=== PATIENT | female | born 1985 | race Caucasian/White ===

== ENCOUNTER 2017-01-06 19:30 | Emergency (ER) | payer OTHER | END 2017-01-06 19:55 | disposition home or self-care (01) | LOC: EC 19:30 | DX: S27.818A Other injury of esophagus (thoracic part), initial encounter (principal); L81.8 Other specified disorders of pigmentation; F17.200 Nicotine dependence, unspecified, uncomplicated; Z88.0 Allergy status to penicillin; Z88.2 Allergy status to sulfonamides; Z91.040 Latex allergy status; X58.XXXA Exposure to other specified factors, initial encounter | CPT/HCPCS: 86803; 87340; 99282 ==

== ENCOUNTER 2018-09-24 09:42 | Emergency (ER) | payer OTHER ==
[2018-09-24 09:47] VITALS: TEMP 98.5
[2018-09-24] MEDS ORDERED: LORazepam 1 MG TAB PO STA (10:28)
[2018-09-24 11:32] VITALS: BP 151/87; PULSE 100; RESP 18
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
== END 2018-09-24 11:47 | disposition home or self-care (01) ==
LOC: EC 09:42
DX: F41.9 Anxiety disorder, unspecified (principal); F17.200 Nicotine dependence, unspecified, uncomplicated; Z88.0 Allergy status to penicillin; Z88.2 Allergy status to sulfonamides; Z91.040 Latex allergy status
CPT/HCPCS: 99283

== ENCOUNTER 2018-09-25 21:16 | Emergency (ER) | payer OTHER ==
[2018-09-25] MEDS ORDERED: ZIPRASIDONE 20 MG CAP PO STA (22:14)
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
[2018-09-25 22:55] VITALS: BP 128/76; PULSE 99; RESP 18; TEMP 99.2
== END 2018-09-25 22:59 | disposition home or self-care (01) ==
LOC: EC 21:16
DX: F41.9 Anxiety disorder, unspecified (principal); F17.200 Nicotine dependence, unspecified, uncomplicated; Z88.0 Allergy status to penicillin; Z88.2 Allergy status to sulfonamides; Z91.040 Latex allergy status; Z79.899 Other long term (current) drug therapy; Z91.410 Personal history of adult physical and sexual abuse
CPT/HCPCS: 99283

== ENCOUNTER 2020-05-02 07:28 | Inpatient (IN) | payer OTHER ==
[2020-05-02] MEDS ORDERED: CLINDAMYCIN 900 MG in DEXTROSE 5% IN WATER 50 ML IVPB STA ×2 (07:32)
[2020-05-02] MEDS ORDERED: LIDOCAINE 0.5% (PF) 5 MG/ML (50 ML SDV) SQ PRN (07:32)
[2020-05-02] MEDS ORDERED: CARBOPROST TROMETHAMINE 250 MCG/ML 1 ML AMP IM PRN (07:32)
[2020-05-02] MEDS ORDERED: METHYLERGONOVINE 0.2 MG/ML 1 ML AMP IM PRN (07:32)
[2020-05-02] MEDS ORDERED: OXYTOCIN 10 UNIT/ML 1 ML VIAL IM PRN (07:32)
[2020-05-02] MEDS ORDERED: TERBUTALINE 1 MG/ML VIAL SQ PRN (07:32)
[2020-05-02] MEDS ORDERED: CITRIC ACID-SODIUM CITRATE 15 ML CUP PO ONE (07:35)
[2020-05-02] MEDS: LACTATED RINGERS 1,000 ML IV SCH ×4 (07:38→16:49)
[2020-05-02] MEDS ORDERED: KETAMINE 10 MG/ML 20 ML VIAL ONE (07:45)
[2020-05-02] MEDS ORDERED: OXYTOCIN 10 UNIT/ML 1 ML VIAL ONE (07:45)
[2020-05-02] MEDS ORDERED: fentaNYL (PF) 50 MCG/ML 2 ML AMP ONE (07:45)
[2020-05-02] MEDS ORDERED: KETOROLAC 15 MG/ML 1 ML VIAL ONE (07:45)
[2020-05-02] MEDS ORDERED: HYDROmorphone (PF) 1 MG/ML ONE (07:45)
[2020-05-02] MEDS ORDERED: PROPOFOL 10 MG/ML 20 ML VIAL IV ONE (07:45)
[2020-05-02] MEDS ORDERED: LACTATED RINGERS 1,000 ML IV SCH (07:45)
[2020-05-02] MEDS ORDERED: SUCCINYLCHOLINE CHLORIDE VIAL 200 MG/10 ML VIAL IV ONE (07:45)
[2020-05-02] MEDS ORDERED: ONDANSETRON 4 MG/2 ML VIAL IVP PRN (09:38)
[2020-05-02] MEDS ORDERED: HYDROcodone/APAP 7.5-325MG 1 EACH TAB PO PRN (09:38)
[2020-05-02] MEDS ORDERED: METOCLOPRAMIDE 5 MG/ML 2 ML VIAL IVP PRN (09:38)
[2020-05-02] MEDS ORDERED: ZOLPIDEM 5 MG TAB PO PRN (09:38)
[2020-05-02] MEDS ORDERED: diphenhydrAMINE 50 MG CAP PO PRN (09:38)
[2020-05-02] MEDS ORDERED: diphenhydrAMINE 25 MG CAP PO PRN (09:38)
[2020-05-02] MEDS ORDERED: NALOXONE 0.4 MG/ML 1 ML VIAL IV PRN (09:38)
[2020-05-02] MEDS ORDERED: HYDROcodone/APAP 5-325MG 1 EACH TAB PO PRN (09:38)
[2020-05-02] MEDS ORDERED: diphenhydrAMINE 50 MG/ML 1 ML VIAL IVP PRN ×2 (09:38)
[2020-05-02 09:43] LABS: HCT 38.4 % (34.0-46.0); HGB 12.4 gm/dL (11.4-16.0); Hypochromasia Moderate; MCH 28.8 pg (25.0-35.0); MCHC 32.3 g/dL (31.0-37.0); MCV 89.1 fL (80.0-100.0); Mean Platelet Volume 9.2; Platelet Count 421 k/uL (150-450); Poikilocytosis Slight; RBC 4.31 m/uL (3.80-5.40); RDW 14.4 % (11.5-15.5)
[2020-05-02 09:47] LABS: WBC 31.9 k/uL (3.8-10.6)
[2020-05-02] MEDS ORDERED: HYDROmorphone PCA 10 MG/50 ML BAG IV PRN (10:00)
--- NOTE | 2020-05-02 10:02 | P.HPOB ---
History of Present Illness H&P Date: 05/02/20 Chief Complaint: 40+ weeks, no care, active labor, transverse prese ntation The patient is a 34-year-old 3 para 2001 who presents to labor and delivery at 40-3/7 weeks by an early ultrasound with history of no further care. She presents in active labor and is found fully dilated. Ultrasound performed by the radiology department demonstrates the fetus to be in transverse presentation with the head in the left lower quadrant, back down. Her cervix is found to be completely dilated. The patient denies any complications with the but is on methadone maintenance for narcotics addiction. She reports that she attempted to seek care when she found that she was but did not know she was until the late second e kel third trimester and was unable to find anyone to see her. She is known to be Rh- but otherwise has no labs on record. She denies any problems with the to this point. Obstetrical history: 3 para 2001 with 2 term vaginal deliveries in the past without complications. Everything known about the is otherwise listed in history of present illness. She is reportedly Rh-. No other labs are available. Gynecologic history: Unremarkable with no apparent history of STDs but no time for questioning. Review of Systems Review of systems is confined to history of present illness. Past Medical History Past Medical History: No Reported History History of Any Multi-Drug Resistant Organisms: None Reported Past Surgical History: Cholecystectomy, Orthopedic Surgery Additional Past Surgical History / Comment(s): shoulder Past Psychological History: Anxiety Past Alcohol Use History: Occasional Past Drug Use History: None Reported Medications and Allergies Home Medications Medication Instructions Recorded Confirmed Type Acetaminophen Tab [Tylenol Tab] 1,000 mg PO Q6H PRN 09/25/18 05/02/20 History Multivitamins, Thera [Multivitamin 1 tab PO DAILY 09/25/18 05/02/20 History (formulary)] Methadone [Dolophine] 120 mg PO DAILY 05/02/20 05/02/20 History Allergies Allergy/AdvReac Type Severity Reaction Status Date / Time latex Allergy Anaphylaxis Verified 05/02/20 07:30 Penicillins Allergy Unknown Verified 05/02/20 07:30 Childhood Sulfa (Sulfonamide Allergy Rash/Hives Verified 05/02/20 07:30 Antibiotics) Exam Intake and Output 05/01/20 05/02/2005/02/20 22:59 06:59 14:59 Other: Weight 113.398 kg In general, this is a morbidly obese white female in significant discomfort as she is completely dilated and in labor. Her heart has a regular rhythm but is otherwise tachycardic without any apparent murmurs. Her lungs are clear to auscultation bilaterally in all briscoe. Her abdomen is gravid, obese, nondistended, soft, with moderate tenderness secondary to labor. Her extremities without any cyanosis, clubbing, or edema and are nontender to palpation bilaterally. Digital cervical examinations demonstrates complete dilation with no evidence of presenting part. Bedside ultrasound by radiology and by myself confirmed had in the left lower quadrant, transverse presentation. Results Result Diagrams: 05/02/20 07:25 05/02/20 09:03 Abnormal Lab Results - Last 24 Hours (Table) 05/02/20 05/02/20 Range/Units 07:25 09:03 WBC 31.9 H (3.8-10.6) k/uL Glucose 130 H (74-99) mg/dL Assessment and Plan (1) Active labor at term Current Visit: Yes Status: Acute Code(s): [id number] - SNOMED Code(s): 79089200 (2) Obesity Current Visit: Yes Status: Acute Code(s): E66.9 - OBESITY, UNSPECIFIED SNOMED Code(s): 897430943 (3) malposition, delivered, current hospitalization Current Visit: Yes Status: Acute Code(s): O32.9XX0 - MATERNAL CARE FOR MALPRESENTATION OF FETUS, UNSP, UNSP SNOMED Code(s): 775411352 Plan: The patient was counseled regarding the need for delivery. She agreed to proceed. She was taken to the operating room emergently for primary low- transverse section for transverse presentation.
--- NOTE | 2020-05-02 10:17 | P.OP ---
Date of Procedure: 05/02/20 Preoperative Diagnosis: #1. 40+ weeks, transverse presentation #2. No care #3. Rh- #4. Active labor, fully dilated Postoperative Diagnosis: Same Procedure(s) Performed: #1. Primary low-transverse section Anesthesia: ESMER Surgeon: Yan Tesfaye Estimated Blood Loss (ml): 700 IV fluids (ml): 800 Urine output (ml): 100 Pathology: other (Placenta) Condition: stable Disposition: floor Operative Findings: Preoperatively, the patient had been noted to have the fetus in transverse presentation both on formal ultrasound and by bedside ultrasound performed by myself prior to going to the operating room. Intraoperatively, the fetus was easily everted to vertex and then delivered in standard fashion having initially been in an oblique presentation with the head in the left lower quadrant, back down. She was delivered of a viable 7 lbs. 15 oz. baby girl with Apgars of 8 at 1 minute and 9 at 5 minutes. The placenta was delivered manually and intact with a grossly normal three-vessel cord. The uterus, tubes, and ovaries were entirely normal to inspection. Description of Procedure: The patient was prepped and draped in usual fashion after which time general endotracheal anesthesia was administered by the anesthesiologist. A Pfannenstiel incision was made and extended into the abdominal cavity without difficulty. The bladder peritoneum was far distal to the intended site of incision was left intact. A 2 cm incision was made in the transverse plane of the lower uterine segment to enter the uterus at which time clear fluid was noted. Incision was extended in both directions bluntly. The head was encountered in the left lower quadrant after exploration with the back down and was inverted fairly easily to had first, vertex presentation. The vertex was then delivered up and through the incision where the nose and mouth were thoroughly suctioned. The remainder of the was delivered onto the field where the cord was doubly clamped, cut, and the infant passed resuscitative measures with weight and Apgars as noted above. cord blood was collected. A segment of cord was doubly clamped, cut, and set aside should cord gases become necessary. The placenta was delivered manually and intact as noted above. The uterus was exteriorized and the interior cavity of the uterus swept of any remaining placental or membranous fragments. The margins of the incision were grasped with Hudson clamps and the incision closed in 2 layers, the first was a running locking stitch of 0 chromic catgut followed by a running imbricating stitch of 0 chromic catgut, each from margin to margin. Any small points of bleeding were made hemostatic with the Bovie. The posterior cul-de-sac was then suctioned with a guard as well as a laparotomy sponge and the uterine and ovarian findings were normal as noted above. The uterus was replaced within the abdominal cavity and the gutters swept of any remaining blood, fluid, or clot. The incision was reexamined and any other small points of bleeding were made hemostatic with the Bovie. Once hemostasis was established, the parietal peritoneum was loosely reapproximated in the layer of muscles examined and found to be hemostatic. The fascia was closed with 2 running stitches of 0 Vicryl proceeding from the lateral margins to the midpoint. The subcutaneous tissues were irrigated, made hemostatic with the Bovie, and reapproximated with a running stitch of 30 plain catgut. The skin was reapproximated with a running subcuticular stitch of 4-0 Vicryl from margin to margin followed by half-inch Steri-Strips placed with Mastisol. Estimated blood loss for the case was approximately 700 mL. There were no complications. All sponge, instrument, and needle counts were correct. Both mother and infant are resting comfortably in recovery. The patient tolerated the procedure well and proceeded to the recovery room in stable condition.
--- NOTE | 2020-05-02 10:20 | US ---
EXAMINATION TYPE: US OB limited DATE OF EXAM: 05/02/2020 COMPARISON: NONE CLINICAL HISTORY: no care, position. emergent ultrasound on patient with no care in active labor EXAM PERFORMED: OB limited for position No growth performed on today?s study per ordering physician SURVEY LIE: Transverse with head maternal L HEART RATE: nurses were monitoring heart beat of fetus and due to emergent nature, US did not attemp t to obtain IMPRESSION: Limited single grayscale image demonstrates lie transverse with head to maternal l eft.
[2020-05-02 10:32] LABS: Band Neutrophils % 1 %; Eosinophils # (M) 0.32 k/uL (0-0.7); Lymphocytes # (M) 2.23 k/uL (1.0-4.8); Metamyelocytes # (M) 0.32 k/uL (0); Metamyelocytes % 1 %; Monocytes # (M) 1.28 k/uL (0-1.0); Myelocytes # (M) 0.32 k/uL (0); Myelocytes % 1 %; Neutrophils % (M) 87 %; Nucleated Red Blood Cells 0 /100 WBC (0-0); Total Cells Counted 200
[2020-05-02 10:35] LABS: Anisocytosis (M) Present; Polychromasia Present
[2020-05-02 11:08] LABS: Amorphous Sediment,Urine Rare /hpf; Appearance,Urine Cloudy (Clear); Bacteria,Urine Rare /hpf; Bilirubin,Urine Negative (Negative); Blood,Urine Large (Negative); Color,Urine Light Red; Glucose,Urine (UA) Negative (Negative); Ketones,Urine Negative (Negative); Leukocyte Esterase,Urine Trace (Negative); Mucus,Urine Few /hpf; Nitrite,Urine Negative (Negative); Protein,Urine 3+ (Negative); RBC,Urine >182 /hpf (0-5); Squamous Epithelial Cell,Urine 2 /hpf (0-4); Urobilinogen,Urine <2.0 mg/dL (<2.0); WBC,Urine 11 /hpf (0-5)
[2020-05-02] MEDS ORDERED: Rhogam IMMUNE GLOBULIN 1,500 UNIT/1 ML IM ONE (15:07)
[2020-05-02] MEDS: KETOROLAC 15 MG/ML 1 ML VIAL IVP PRN ×2 (15:20→21:30)
[2020-05-02] MEDS ORDERED: CLINDAMYCIN 900 MG in DEXTROSE 5% IN WATER 50 ML IVPB SCH ×2 (15:30)
[2020-05-02] MEDS ORDERED: PATIENTS OWN MED PO SCH (17:00)
[2020-05-02 18:03] LABS: Hepatitis B Surface Antigen Non-Reactive (Non-Reactive)
[2020-05-02] MEDS: SENNOSIDES-DOCUSATE SODIUM 1 EACH TAB PO SCH (21:09)
[2020-05-02] MEDS: METHADONE 40 MG, METHADONE 5 MG PO SCH ×2 (22:11)
[2020-05-03] MEDS: LACTATED RINGERS 1,000 ML IV SCH (01:02)
[2020-05-03] MEDS: METHADONE 10 MG TAB PO SCH (04:50)
[2020-05-03] MEDS: KETOROLAC 15 MG/ML 1 ML VIAL IVP PRN (06:02)
[2020-05-03 06:09] LABS: Basophils # (A) 0.1 k/uL (0-0.2); Basophils % (A) 0 %; Eosinophils # (A) 0.1 k/uL (0-0.7); Eosinophils % (A) 0 %; HCT 29.2 % (34.0-46.0); Hypochromasia Slight; Lymphocytes # (A) 2.6 k/uL (1.0-4.8); Lymphocytes % (A) 11 %; MCH 28.3 pg (25.0-35.0); MCHC 31.9 g/dL (31.0-37.0); MCV 88.9 fL (80.0-100.0); Mean Platelet Volume 7.7; Monocytes % (A) 4 %; Neutrophils # (A) 19.4 k/uL (1.3-7.7); Neutrophils % (A) 82 %; Platelet Count 349 k/uL (150-450); RBC 3.29 m/uL (3.80-5.40); RDW 14.9 % (11.5-15.5); WBC 23.6 k/uL (3.8-10.6)
[2020-05-03 06:14] LABS: HGB 9.3 gm/dL (11.4-16.0)
--- NOTE | 2020-05-03 07:25 | P.PNOBGPC ---
Subjective - Subjective Patient reports: Reports appetite normal, Reports voiding normally, Reports pain well controlled, Reports ambulating normally : doing well Objective - Vital Signs Latest vital signs: Vital Signs Temp Pulse Resp BP Pulse Ox 05/03/20 04:00 98.4 F 88 18 129/64 95 05/03/20 00:00 97.5 F L 94 16 133/75 96 05/02/20 20:00 97.7 F 95 18 120/59 95 05/02/20 16:00 98.4 F 93 16 111/69 93 L 05/02/20 11:00 98.2 F 100 16 135/64 05/02/20 10:45 100 16 137/62 93 L 05/02/20 10:15 98 16 129/60 97 05/02/20 09:45 100 16 143/66 94 L 05/02/20 09:30 97 16 142/62 94 L 05/02/20 09:15 93 16 145/70 95 05/02/20 09:00 99 16 143/68 94 L 05/02/20 08:45 117 H 16 135/76 93 L 05/02/20 07:30 97.1 F L 109 H 20 150/90 98 Intake and Output 05/02/20 05/03/20 05/03/20 22:59 06:59 14:59 Output Total 1130 700 Balance -1130 -700 Output: Urine 1130 700 Uretheral (Franz) 150 Other: Voiding Method Toilet Toilet # Voids 1 - Exam Extremities: Present: normal Abdomen: Present: normal appearance, soft. Absent: distention, tenderness Incision: Present: normal, dry, intact Uterus: Present: normal, firm (The uterine fundus is tonic and appropriately tender around the umbilicus.) - Labs Labs: Abnormal Lab Results - Last 24 Hours (Table) 05/02/20 05/02/20 05/02/20 Range/Units 07:25 09:03 10:26 WBC 31.9 H (3.8-10.6) k/uL RBC (3.80-5.40) m/uL Hgb (11.4-16.0) gm/dL Hct (34.0-46.0) % Neutrophils # (1.3-7.7) k/uL Neutrophils # (Manual) 28.00 H (1.3-7.7) k/uL Monocytes # (Manual) 1.28 H (0-1.0) k/uL Metamyelocytes # (Man) 0.32 H (0) k/uL Myelocytes # (Manual) 0.32 H (0) k/uL Glucose 130 H (74-99) mg/dL Urine Appearance Cloudy H (Clear) Urine Protein 3+ H (Negative) Urine Blood Large H (Negative) Ur Leukocyte Esterase Trace H (Negative) Urine RBC >182 H (0-5) /hpf Urine WBC 11 H (0-5) /hpf Amorphous Sediment Rare H (None) /hpf Urine Bacteria Rare H (None) /hpf Urine Mucus Few H (None) /hpf 05/03/20 Range/Units 05:51 WBC 23.6 H (3.8-10.6) k/uL RBC 3.29 L (3.80-5.40) m/uL Hgb 9.3 L D (11.4-16.0) gm/dL Hct 29.2 L (34.0-46.0) % Neutrophils # 19.4 H (1.3-7.7) k/uL Neutrophils # (Manual) (1.3-7.7) k/uL Monocytes # (Manual) (0-1.0) k/uL Metamyelocytes # (Man) (0) k/uL Myelocytes # (Manual) (0) k/uL Glucose (74-99) mg/dL Urine Appearance (Clear) Urine Protein (Negative) Urine Blood (Negative) Ur Leukocyte Esterase (Negative) Urine RBC (0-5) /hpf Urine WBC (0-5) /hpf Amorphous Sediment (None) /hpf Urine Bacteria (None) /hpf Urine Mucus (None) /hpf Assessment and Plan (1) Active labor at term Current Visit: Yes Status: Acute Code(s): [id number] - SNOMED Code(s): 41399238 (2) Obesity Current Visit: Yes Status: Acute Code(s): E66.9 - OBESITY, UNSPECIFIED SNOMED Code(s): 239031806 (3) malposition, delivered, current hospitalization Current Visit: Yes Status: Acute Code(s): O32.9XX0 - MATERNAL CARE FOR MALPRESENTATION OF FETUS, UNSP, UNSP SNOMED Code(s): 231254187 (4) Status post section Current Visit: Yes Status: Acute Code(s): Z98.891 - HISTORY OF UTERINE SCAR FROM PREVIOUS SURGERY SNOMED Code(s): 785604138 Plan: Continue routine postoperative care. Her IV will be saline locked and the [employer] discontinued in favor of oral pain medications. I strongly encouraged her to ambulate in the halls routinely. I would anticipate possible discharge home tomorrow pending no complications though the may require longer-term stay secondary to methadone. As result, the patient may choose to stay longer as well.
[2020-05-03] MEDS: SENNOSIDES-DOCUSATE SODIUM 1 EACH TAB PO SCH ×2 (09:24→19:44)
[2020-05-03] MEDS: ACETAMINOPHEN TAB 325 MG TAB PO PRN ×2 (11:04→19:44)
[2020-05-03] MEDS: IBUPROFEN 600 MG TAB PO PRN (16:55)
[2020-05-03] MEDS ORDERED: METHADONE 5 MG TAB PO SCH (17:00)
[2020-05-03] MEDS ORDERED: METHADONE 40 MG, METHADONE 5 MG PO SCH ×2 (17:00)
[2020-05-03] MEDS: METHADONE 40 MG, METHADONE 5 MG PO SCH ×2 (17:21)
[2020-05-04] MEDS: METHADONE 10 MG TAB PO SCH (04:54)
[2020-05-04] MEDS: ACETAMINOPHEN TAB 325 MG TAB PO PRN (05:00)
--- NOTE | 2020-05-04 08:38 | P.PNOBGPC ---
Subjective - Subjective Patient reports: Reports appetite normal, Reports voiding normally, Reports pain well controlled, Reports ambulating normally : doing well, in NICU ( requiring are ptotic for the withdrawal protocol, likely to be here for some time.) Objective - Vital Signs Latest vital signs: Vital Signs Temp Pulse Resp BP 05/04/20 00:00 97.3 F L 86 16 135/73 05/03/20 16:00 97.8 F 78 16 134/86 - Exam Extremities: Present: normal Abdomen: Present: normal appearance, soft. Absent: distention, tenderness Incision: Present: normal, dry, intact Uterus: Present: normal, firm (The uterine fundus is tonic and appropriately tender around the umbilicus.) Assessment and Plan (1) Active labor at term Current Visit: Yes Status: Acute Code(s): [id number] - SNOMED Code(s): 85050538 (2) Obesity Current Visit: Yes Status: Acute Code(s): E66.9 - OBESITY, UNSPECIFIED SNOMED Code(s): 080631292 (3) malposition, delivered, current hospitalization Current Visit: Yes Status: Acute Code(s): O32.9XX0 - MATERNAL CARE FOR MALPRESENTATION OF FETUS, UNSP, UNSP SNOMED Code(s): 353914099 (4) Status post section Current Visit: Yes Status: Acute Code(s): Z98.891 - HISTORY OF UTERINE SCAR FROM PREVIOUS SURGERY SNOMED Code(s): 439168290 Plan: Continue routine postoperative and care. The patient wishes to remain in the hospital for 1 more day and will likely be discharged home tomorrow.
[2020-05-04] MEDS: SENNOSIDES-DOCUSATE SODIUM 1 EACH TAB PO SCH (09:01)
[2020-05-04] MEDS: IBUPROFEN 600 MG TAB PO PRN ×2 (09:01)
[2020-05-04 10:03] VITALS: BP 120/75; PULSE 98; RESP 18; TEMP 98.5
[2020-05-04 16:39] LABS: HIV 2 AB Non-Reactive (Non-Reactive); HIV AB P24 Non-Reactive (Non-Reactive); HIV P24 AG Non-Reactive (Non-Reactive)
[2020-05-05 15:07] LABS: C. trachomatis,PCR Negative (Neg,Equiv); Chlamydia trachomatis Source Urine; N. gonorrhoeae,PCR Negative (Neg,Equiv); Neisseria Source Urine
== END 2020-05-04 13:20 | disposition home or self-care (01) | DRG 788 ==
LOC: 4FBP 07:28
PROVIDERS: ADMIT Obstetrics & Gynecology; ATTEND Obstetrics & Gynecology
PROC: 10D00Z1 Extraction of Products of Conception, Low, Open Approach (ICD-10-PCS; principal; 2020-05-02 07:45)
DX: O32.2XX0 Maternal care for transverse and oblique lie, not applicable or unspecified (principal); O99.214 Obesity complicating childbirth; E66.01 Morbid (severe) obesity due to excess calories; O99.62 Diseases of the digestive system complicating childbirth; K21.9 Gastro-esophageal reflux disease without esophagitis; O26.893 Other specified pregnancy related conditions, third trimester; Z86.59 Personal history of other mental and behavioral disorders; Z37.0 Single live birth; Z3A.40 40 weeks gestation of pregnancy
CPT/HCPCS: 76815; 81001; 82947; 85025; 85461; 86762; 86780; 86850; 86900; 86901; 87340; 87390; 87491; 87591; 88307

== ENCOUNTER 2020-05-05 08:44 | Emergency (ER) | payer OTHER ==
[2020-05-05 08:54] VITALS: TEMP 98.6
--- NOTE | 2020-05-05 09:37 | ED ---
General Adult HPI - General Chief complaint: Extremity Injury, Lower Stated complaint: post /poss blood clot Time Seen by Provider: 05/05/20 09:03 Source: patient, RN notes reviewed Mode of arrival: ambulatory Limitations: no limitations - History of Present Illness Initial comments: This a 34-year-old female presents emergency Department chief complaint leg swelling, right leg pain. Patient states that she is discharged yesterday status post . Patient states that she woke up severe right thigh pain states her legs are numbness. She states she had mild swelling but nothing to this extent. She denies any chest pain shortness breath. She denies any history of preeclampsia or gestational diabetes. Patient states that her FABRICATION MACHINE OPERATOR was Dr. Chance in the hospital. Patient reports no fever, chills, headache or dizziness. Patient does state that she takes methadone. - Related Data Home Medications Medication Instructions Recorded Confirmed Acetaminophen Tab [Tylenol Tab] 1,000 mg PO Q6H PRN 09/25/18 05/02/20 Multivitamins, Thera [Multivitamin 1 tab PO DAILY 09/25/18 05/02/20 (formulary)] Methadone [Dolophine] 120 mg PO DAILY 05/02/20 05/02/20 Previous Rx's Medication Instructions Recorded Ibuprofen [Motrin] 600 mg PO Q8HR PRN #20 tab 05/05/20 Nitrofurantoin Monohyd/M-Cryst 100 mg PO Q12HR #14 cap 05/05/20 [Macrobid] Allergies Allergy/AdvReac Type Severity Reaction Status Date / Time latex Allergy Anaphylaxis Verified 05/05/20 08:51 Penicillins Allergy Unknown Verified 05/05/20 08:51 Childhood Sulfa (Sulfonamide Allergy Rash/Hives Verified 05/05/20 08:51 Antibiotics) Review of Systems ROS Statement: Those systems with pertinent positive or pertinent negative responses have been documented in the HPI. ROS Other: All systems not noted in ROS Statement are negative. Past Medical History Past Medical History: No Reported History History of Any Multi-Drug Resistant Organisms: None Reported Past Surgical History: Cholecystectomy, Orthopedic Surgery Additional Past Surgical History / Comment(s): shoulder Past Anesthesia/Blood Transfusion Reactions: No Reported Reaction Past Psychological History: Anxiety Past Alcohol Use History: Occasional Past Drug Use History: None Reported - Past Family History Mother Family Medical History: Cancer Additional Family Medical History / Comment(s): breast General Exam Limitations: no limitations General appearance: alert, in no apparent distress Head exam: Present: atraumatic, normocephalic, normal inspection Eye exam: Present: normal appearance, PERRL, EOMI. Absent: scleral icterus, conjunctival injection, periorbital swelling ENT exam: Present: normal exam, normal oropharynx, mucous membranes moist Neck exam: Present: normal inspection, full ROM. Absent: tenderness, meningismus, lymphadenopathy Respiratory exam: Present: normal lung sounds bilaterally. Absent: respiratory distress, wheezes, rales, rhonchi, stridor Cardiovascular Exam: Present: regular rate, normal rhythm, normal heart sounds. Absent: systolic murmur, diastolic murmur, rubs, gallop, clicks GI/Abdominal exam: Present: soft, tenderness (Minimal), normal bowel sounds, other ( incision noted). Absent: distended, guarding, rebound, rigid Extremities exam: Present: pedal edema, other (Moderate right thigh tenderness, lower extremity pulses equal bilaterally) Back exam: Absent: CVA tenderness (R), CVA tenderness (L) Skin exam: Present: warm, dry, intact, normal color. Absent: rash Course Vital Signs 05/05/20 05/05/20 08:51 11:41 Temperature 98.6 F Pulse Rate 96 107 H Respiratory 18 16 Rate Blood Pressure 145/77 130/68 O2 Sat by Pulse 99 99 Oximetry Medical Decision Making - Medical Decision Making Peripheral female presented for leg pain was concern for possible DVT. Patient did have mild swelling and she is . Blood pressure is mildly elevated though on repeat not significantly elevated. Patient's LDH uric acid is minimally elevated. A CERT the patient that she needs a follow-up within the next 24-48 hrs. with her FABRICATION MACHINE OPERATOR she needs to monitor blood pressure at home and if there is any elevation she is return the emergency department for further evaluation and possible admission. - Lab Data Result diagrams: 05/05/20 09:52 05/05/20 09:52 Lab Results 05/05/20 05/05/20 05/05/20 Range/Units 09:52 09:52 09:52 WBC 19.3 H (3.8-10.6) k/uL RBC 3.11 L (3.80-5.40) m/uL Hgb 8.7 L (11.4-16.0) gm/dL Hct 27.7 L (34.0-46.0) % MCV 89.1 (80.0-100.0) fL MCH 28.0 (25.0-35.0) pg MCHC 31.4 (31.0-37.0) g/dL RDW 14.9 (11.5-15.5) % Plt Count 448 (150-450) k/uL Neutrophils % 84 % Lymphocytes % 10 % Monocytes % 4 % Eosinophils % 1 % Basophils % 0 % Neutrophils # 16.2 H (1.3-7.7) k/uL Lymphocytes # 2.0 (1.0-4.8) k/uL Monocytes # 0.7 (0-1.0) k/uL Eosinophils # 0.2 (0-0.7) k/uL Basophils # 0.1 (0-0.2) k/uL Hypochromasia Moderate Poikilocytosis Slight Sodium 137 (137-145) mmol/L Potassium 4.3 (3.5-5.1) mmol/L Chloride 106 (98-107) mmol/L Carbon Dioxide 25 (22-30) mmol/L Anion Gap 6 mmol/L BUN 8 (7-17) mg/dL Creatinine 0.74 (0.52-1.04) mg/dL Est GFR (CKD-EPI)AfAm >90 (>60 ml/min/1.73 sqM) Est GFR (CKD-EPI)NonAf >90 (>60 ml/min/1.73 sqM) Glucose 82 (74-99) mg/dL Uric Acid 8.1 H (3.7-7.4) mg/dL Calcium 8.5 (8.4-10.2) mg/dL Total Bilirubin 0.3 (0.2-1.3) mg/dL AST 20 (14-36) U/L ALT 11 (4-34) U/L Alkaline Phosphatase 151 H (38-126) U/L Lactate Dehydrogenase 643 H (313-618) U/L NT-Pro-B Natriuret Pep 219 pg/mL Total Protein 5.9 L (6.3-8.2) g/dL Albumin 2.9 L (3.5-5.0) g/dL Urine Color Urine Appearance (Clear) Urine pH (5.0-8.0) Ur Specific [place] (1.001-1.035) Urine Protein (Negative) Urine Glucose (UA) (Negative) Urine Ketones (Negative) Urine Blood (Negative) Urine Nitrite (Negative) Urine Bilirubin (Negative) Urine Urobilinogen (<2.0) mg/dL Ur Leukocyte Esterase (Negative) Urine RBC (0-5) /hpf Urine WBC (0-5) /hpf Ur Squamous Epith Cells (0-4) /hpf Urine Bacteria (None) /hpf Urine Mucus (None) /hpf 05/05/20 Range/Units 11:40 WBC (3.8-10.6) k/uL RBC (3.80-5.40) m/uL Hgb (11.4-16.0) gm/dL Hct (34.0-46.0) % MCV (80.0-100.0) fL MCH (25.0-35.0) pg MCHC (31.0-37.0) g/dL RDW (11.5-15.5) % Plt Count (150-450) k/uL Neutrophils % % Lymphocytes % % Monocytes % % Eosinophils % % Basophils % % Neutrophils # (1.3-7.7) k/uL Lymphocytes # (1.0-4.8) k/uL Monocytes # (0-1.0) k/uL Eosinophils # (0-0.7) k/uL Basophils # (0-0.2) k/uL Hypochromasia Poikilocytosis Sodium (137-145) mmol/L Potassium (3.5-5.1) mmol/L Chloride (98-107) mmol/L Carbon Dioxide (22-30) mmol/L Anion Gap mmol/L BUN (7-17) mg/dL Creatinine (0.52-1.04) mg/dL Est GFR (CKD-EPI)AfAm (>60 ml/min/1.73 sqM) Est GFR (CKD-EPI)NonAf (>60 ml/min/1.73 sqM) Glucose (74-99) mg/dL Uric Acid (3.7-7.4) mg/dL Calcium (8.4-10.2) mg/dL Total Bilirubin (0.2-1.3) mg/dL AST (14-36) U/L ALT (4-34) U/L Alkaline Phosphatase (38-126) U/L Lactate Dehydrogenase (313-618) U/L NT-Pro-B Natriuret Pep pg/mL Total Protein (6.3-8.2) g/dL Albumin (3.5-5.0) g/dL Urine Color Yellow Urine Appearance Cloudy H (Clear) Urine pH 5.5 (5.0-8.0) Ur Specific [place] 1.011 (1.001-1.035) Urine Protein 1+ H (Negative) Urine Glucose (UA) Negative (Negative) Urine Ketones Negative (Negative) Urine Blood Large H (Negative) Urine Nitrite Negative (Negative) Urine Bilirubin Negative (Negative) Urine Urobilinogen <2.0 (<2.0) mg/dL Ur Leukocyte Esterase Large H (Negative) Urine RBC >182 H (0-5) /hpf Urine WBC 134 H (0-5) /hpf Ur Squamous Epith Cells 3 (0-4) /hpf Urine Bacteria Occasional H (None) /hpf Urine Mucus Rare H (None) /hpf Disposition Clinical Impression: Leg pain, UTI (urinary tract infection), Leg edema Disposition: HOME SELF-CARE Condition: Stable Instructions (If sedation given, give patient instructions): Leg Edema (ED), Preeclampsia During (ED) Additional Instructions: Please monitor blood pressure at home, please follow-up with F[employer]RICATION MACHINE OPERATOR in the next 1-2 days. Return for any worsening or change of symptoms. Prescriptions: Nitrofurantoin Monohyd/M-Cryst [Macrobid] 100 mg PO Q12HR #14 cap Ibuprofen [Motrin] 600 mg PO Q8HR PRN #20 tab PRN Reason: Pain Is patient prescribed a controlled substance at d/c from ED?: No Referrals: None,Stated [Primary Care Provider] - 1-2 days Time of Disposition: 12:47
--- NOTE | 2020-05-05 10:22 | US ---
EXAMINATION TYPE: US venous doppler duplex LE RT DATE OF EXAM: 05/05/2020 10:13 AM COMPARISON: NONE CLINICAL HISTORY: 34-year-old female pain along the posterior aspect of the right thigh. Swelling of RLE following 3 days ago. SIDE PERFORMED: Right TECHNIQUE: The lower extremity deep venous system is examined utilizing real time linear array sonog oliver with graded compression, doppler sonography and color-flow sonography. FINDINGS: VESSELS IMAGED: External Iliac Vein (EIV) Common Femoral Vein Deep Femoral Vein Greater Saphenous Vein * Femoral Vein Popliteal Vein Small Saphenous Vein * Proximal Calf Veins (* superficial vessels) Right Leg: Negative for DVT IMPRESSION: No evidence for DVT within the right lower extremity imaged from the groin to the upper calf.
[2020-05-05 10:58] LABS: Basophils # (A) 0.1 k/uL (0-0.2); Basophils % (A) 0 %; Eosinophils # (A) 0.2 k/uL (0-0.7); Eosinophils % (A) 1 %; HCT 27.7 % (34.0-46.0); HGB 8.7 gm/dL (11.4-16.0); Hypochromasia Moderate; Lymphocytes % (A) 10 %; MCHC 31.4 g/dL (31.0-37.0); MCV 89.1 fL (80.0-100.0); Mean Platelet Volume 7.3; Monocytes # (A) 0.7 k/uL (0-1.0); Monocytes % (A) 4 %; Neutrophils # (A) 16.2 k/uL (1.3-7.7); Neutrophils % (A) 84 %; Platelet Count 448 k/uL (150-450); Poikilocytosis Slight; RBC 3.11 m/uL (3.80-5.40); RDW 14.9 % (11.5-15.5); WBC 19.3 k/uL (3.8-10.6)
[2020-05-05 11:13] LABS: ALT 11 U/L (4-34); AST 20 U/L (14-36); African American GFR (CKD) >90 (>60 ml/min/1.73 sqM); Albumin 2.9 g/dL (3.5-5.0); Alkaline Phosphatase 151 U/L (38-126); Anion Gap 6 mmol/L; Blood Urea Nitrogen 8 mg/dL (7-17); Calcium 8.5 mg/dL (8.4-10.2); Carbon Dioxide 25 mmol/L (22-30); Chloride 106 mmol/L (98-107); Glucose 82 mg/dL (74-99); LDH 643 U/L (313-618); Non-African American GFR(CKD) >90 (>60 ml/min/1.73 sqM); Potassium 4.3 mmol/L (3.5-5.1); Sodium 137 mmol/L (137-145); Total Bilirubin 0.3 mg/dL (0.2-1.3); Total Protein 5.9 g/dL (6.3-8.2); Uric Acid 8.1 mg/dL (3.7-7.4)
[2020-05-05] MEDS ORDERED: ORPHENADRINE 30 MG/ML 2 ML VIAL IVP STA (11:36)
[2020-05-05 11:42] VITALS: BP 130/68; PULSE 107; RESP 16
[2020-05-05 12:34] LABS: Appearance,Urine Cloudy (Clear); Bacteria,Urine Occasional /hpf; Bilirubin,Urine Negative (Negative); Blood,Urine Large (Negative); Color,Urine Yellow; Glucose,Urine (UA) Negative (Negative); Ketones,Urine Negative (Negative); Leukocyte Esterase,Urine Large (Negative); Mucus,Urine Rare /hpf; Nitrite,Urine Negative (Negative); PH, Urine 5.5 (5.0-8.0); Protein,Urine 1+ (Negative); RBC,Urine >182 /hpf (0-5); Specific Gravity,Urine 1.011 (1.001-1.035); Squamous Epithelial Cell,Urine 3 /hpf (0-4); Urobilinogen,Urine <2.0 mg/dL (<2.0); WBC,Urine 134 /hpf (0-5)
[2020-05-05] MEDS ORDERED: KETOROLAC 15 MG/ML 1 ML VIAL IVP STA (12:44)
[2020-05-05] MEDS ORDERED: cefTRIAXone IN SWFI 1,000 MG/10 ML SYRINGE IVP STA (12:44)
== END 2020-05-05 13:17 | disposition home or self-care (01) ==
LOC: EC 08:44
DX: R60.0 Localized edema (principal); M79.651 Pain in right thigh; R20.0 Anesthesia of skin; N39.0 Urinary tract infection, site not specified; Z88.0 Allergy status to penicillin; Z88.2 Allergy status to sulfonamides; Z91.040 Latex allergy status
CPT/HCPCS: 36415; 83880; 80053; 83615; 84550; 85025; 81001; 93971; 99284; 96374; 96375 ×2; J2360; J0696; J1885